=== PATIENT | male | born 2000 | race Asian ===

== ENCOUNTER 2025-05-08 07:24 | Emergency (ER) | payer SELFPAY ==
[~2025-05-08] VITALS: Ht 177.8 cm; Wt 98.0 kg
[2025-05-08 07:28] VITALS: BP 135/86; PULSE 89; RESP 16; TEMP 36.7; O2SAT 97
== END 2025-05-08 08:49 | disposition left against medical advice (07) ==
LOC: ER 07:24
DX: M54.50 Low back pain, unspecified (principal)
CPT/HCPCS: 99281